=== PATIENT | female | born 2000 | race Caucasian/White ===

== ENCOUNTER 2025-02-23 14:01 | Outpatient (AMB) | payer BC, SELFPAY ==
[2025-02-23 14:16] VITALS: BP 129/79; PULSE 91; RESP 16; TEMP 36.2; O2SAT 99; BMI 34.1
--- NOTE | 2025-02-23 14:16 | OBCLNT_ITS ---
Vital Signs 02/23/25 14:16 Height 1.63 m Height Method Stated Weight 90.265 kg Weight Measurement Method Standing Scale BMI 34.1 BP 129/79 Blood Pressure Source Automatic Cuff Blood Pressure Location Left Upper Arm Position Sitting Respiration 16 Pulse 91 Pulse Source Monitor Temp 97.2 F Temp Source Oral Pulse Oximetry (%) 99 Oxygen Delivery Method Room Air Allergies/Home Meds Allergies & Medications Allergies No Known Allergies Allergy (Verified 02/23/25 14:17) Medication Reconciliation No Known Home Medications 02/23/25 [History Confirmed 02/23/25] Intake Visit Data Collection New Patient or Established: New Patient (never been to [facility]) Reason for Visit:: NEW OB TRANSFER 18 WEEKS Seen by Clinical Staff ONLY (RN/MA): No Leather Skinner Required: No Do You Feel Safe at Home: Yes Authorities Contacted: N/A PCP or OBGYN visit in last 3 months: Yes Hx Now: Yes Are you currently on any form of Control: No Last menstrual period: 09/25/24 Pain Present Currently: Yes Pain Scale Used: Kumar-Huitron/Numerical Pain scale:: 0 Smoking Status Smoking Status: Never smoker Questionnaires Covid-19 Vaccine Questionnaire Has patient been vacinated for Covid-19 Have you been vacinated for Covid-19: Yes PHQ-9 PHQ-2 Over the last 2 weeks, how often have you been bothered by any of the following problems? 1. Little interest or pleasure in doing things: not at all 2. Feeling down, depressed, or hopeless: not at all Total score: 0 PHQ-9 3. Trouble falling or staying asleep, or sleeping too much: Not at all 4. Feeling tired or having little energy: Not at all 5. Poor appetite or overeating: Not at all 6. Feeling bad about yourself - or that you are a failure or have let yourself or your family down: Not at all 7. Trouble concentrating on things, such as reading the newspaper or watching television: Not at all 8. Moving or speaking so slowly that other people could have noticed? - Or the opposite - being so fidgety or restless that you have been moving around a lot more than usual: not at all 9. Thoughts that you would be better off or of hurting yourself in some way: Not at all Total score: 0 If you checked off any problems, how difficult have these problems made it for you to do your work, take care of things at home, or get along with other people?: not difficult at all Source: Developed by Drs. Bebeto Merrill, Penelope Meyer, Harley Santos and colleagues, with an educational alfred from [employer]. 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 Her daughter was 7 months old when she became again.I delivered her for Dr Gomez. She was an IOL for HTN. + Epidural. 39 weeks. Her daughter was 7 lbs and she only pushed once. She had labs ordered from [facility] with Dr Bauer and these are on the chart. She had a normal NIPT 46 XX. 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 She is on Baby ASA due to hx PIH and BMI 34. She is interested in IOL this . OB Initial Visit OB Flowsheet OB Flowsheet Initial Weight: Not Recorded Date -?-?-?-?-?-?-?-?--?-?-?-?- EGA Weight Edema CTX Effacement BP Fundal ht Pres Dilation Effacement Station Visit Note Alb Glu FHR Mov 02/23/25 -?-?-?-?-?-?-?-?-?-?-?-?- 18w 2d 90.265 kg 129/79 20 N IPT 46 XX active Menstrual History Menstrual reliability: definite Flow: normal Menstrual regularity: regular Monthly: Yes Age at menarche: 11 On control pills at conception: No OB History : 1 Para: 1 Hx # Pregnancies: 0 Hx Total # of Abortions (Spontaneous & Elective): 0 # of Living Children: 1 Delivery History 1st : sex: male ([id number]) Delivery type: vaginal History of depression before or after : No Infection History & Risk Evaluation History of STDs: none HIV risk evaluation: low risk Hepatitis B risk evaluation: low risk Patient or partner has history of Genital Herpes: No Varicella/chicken pox status: immunized Genetic Screening & History Genetic Screening/Teratology Counseling - Includes patient, baby's father, or anyone in either family with: 1. Patient's age 35 years or older as of estimated date of delivery: No 2. Thalassemia (Beninese, Eritrean, Mediterranean, or Background); MCV less than 80: No 3. Neural Tube Defect (Meningomyelocele, Spina Bifida, or Anencephaly): No 4. Congenital Heart Defect: No 5. Down Syndrome: No 6. Morro-Sachs (Ashkenazi Scientology, Cajun, Sinhala [place]): No 7. Becky Disease (Ashkenazi Scientology): No 8. Familial Dysautonomia (Ashkenazi Scientology): No 9. Sickle Cell Disease or Trait (): No 10. Hemophilia or other blood disorders: No 11. Muscular Dystrophy: No 12. Cystic Fibrosis: No 13. Lawndale's Chorea: No 14. Mental Retardation/Autism: No 15. Other inherited genetic or chromosomal disorder: No 16. Maternal Metabolic Disorder (EG,TYPE 1 Diabetes, PKU): No 17. Patient or baby's father had a child with defects not listed above: No 18. Recurrent loss or a stillbirth: No 19. Medications (including supplements, vitamins, herbs or otc drugs)/illicit/recreational drugs/alcohol since last menstrual period: No 20. Any other: No Infection History 1. Live with someone with TB or exposed to TB: No 2. Rash or viral illness since last menstrual period: No 3. Hepatitis B,C: No Other (see comments) Source: [employer] Exam Narrative Physical exam: Fundus 20 weeks General General Appearance: alert, in no apparent distress, comfortable, cooperative, healthy appearing and well groomed Neck Neck exam: Present normal inspection, full ROM and trachea midline Chest Chest inspection: Present normal inspection and symmetric chest wall rise Resp Respiratory exam: Present normal lung sounds bilaterally Card Cardiovascular exam: Present regular rate, normal rhythm and normal heart sounds Abdominal Abdominal exam: Present soft and normal bowel sounds Extremities Extremities exam: Present normal inspection and full ROM Psych Psychiatric exam: Present normal affect and normal mood Skin Skin exam: Present warm, dry, intact and normal color Assessment & Plan Diagnosis / Problem List (1) : Status: Acute Qualifiers: Weeks of gestation: 20 weeks Qualified Code(s): Z3A.20 - 20 weeks gestation of Assessment and Plan: Order structural survey (2) History of pre-eclampsia: Status: Acute Assessment and Plan: Monitor BP, continue baby ASA. Consider IOL at 39 weeks. Office Procedures OB Clinic LOC & Office Proc's Nursing/Assessment Patient Status: Initial/New Patient OB Clinic Nursing Assessment: BP Monitoring, Medication Reconciliation, Update PMH in EMR and Vital Signs OB Clinic Coordination of Care: Consent,records obtained, informed consent, Results/Orders obtained and Staff clarify orders Special Needs: Heart tones New Patient Charge New Patient Point Assignment: 1094 New Patient Point Charge: AREA INTELLIGENCE TECHNICIAN Level 3 ([id number])
== END 2025-02-23 15:23 | disposition home or self-care (01) ==
LOC: HODSOBC 14:01
PROVIDERS: Supervising Provider Obstetrics & Gynecology; Visit Provider Obstetrics & Gynecology
DX: O09.292 Supervision of pregnancy with other poor reproductive or obstetric history, second trimester (principal); Z3A.18 18 weeks gestation of pregnancy; Z87.59 Personal history of other complications of pregnancy, childbirth and the puerperium
CPT/HCPCS: 99203; G0463

== ENCOUNTER 2025-03-22 13:58 | Outpatient (AMB) | payer BC, SELFPAY ==
[2025-03-22 14:35] VITALS: BP 123/77; PULSE 101; RESP 18; TEMP 36.2; O2SAT 98; BMI 34.9
--- NOTE | 2025-03-22 14:35 | OBCLNT_ITS ---
Vital Signs 03/22/25 14:35 Height 1.63 m Height Method Stated Weight 92.986 kg Weight Measurement Method Standing Scale BMI 34.9 BP 123/77 Blood Pressure Source Automatic Cuff Blood Pressure Location Left Upper Arm Position Sitting Respiration 18 Pulse 101 H Pulse Source Monitor Temp 97.2 F Temp Source Oral Pulse Oximetry (%) 98 Oxygen Delivery Method Room Air Allergies/Home Meds Allergies & Medications Allergies No Known Allergies Allergy (Verified 03/22/25 14:35) Medication Reconciliation No Known Home Medications 02/23/25 [History Confirmed 03/22/25] Intake Visit Data Collection New Patient or Established: Established Patient (seen at [facility] within 3 years) Reason for Visit:: Return OB visit Do You Feel Safe at Home: Yes Authorities Contacted: N/A PCP or OBGYN visit in last 3 months: Yes Smoking Status Smoking Status: Never smoker Questionnaires PHQ-9 PHQ-2 Over the last 2 weeks, how often have you been bothered by any of the following problems? 1. Little interest or pleasure in doing things: not at all PHQ-9 8. Moving or speaking so slowly that other people could have noticed? - Or the opposite - being so fidgety or restless that you have been moving around a lot more than usual: not at all Source: Developed by Drs. Bebeto Merrill, Penelope Meyer, Harley Santos and colleagues, with an educational alfred from [employer]. 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 Her babies will be 12 to 13 months apart at delivery. Care OB Visit Log OB Flowsheet Initial Weight: Not Recorded Date -?-?-?-?-?-?-?-?-?-?-?-?- EGA Weight BP Alb Glu CTX Pres Fundal ht FHR Mov Dilation Station Effacement Hx Notes Visit Note 02/23/25 -?-?-?-?-?-?-?-?-?-?-?-?- 18w 2d 90.265 kg 129/79 20 active NIPT 46 XX 03/22/25 -?-?-?-?-?-?-?-?-?-?-?-?- 22w 1d 92.986 kg 123/77 23 142 active Good movement. No contractions. No loss of fluid. Had structural survey [place] [facility] 2 weeks ago. I do not have the report yet. Would like to be induced at 39 weeks. Needs glucose challenge test next week. NOA Calculator Estimated Delivery Date Method Current WG Current Estimate 07/25/25 Ultrasound #1 22w 1d Other Estimates 08/04/25 LMP (Uncertain) 20w 5d Expected Delivery Route/Plan 24-year-old -0-0-1. Patient got with a 4-month-old at home. For induction of labor. Coming from [place]. Desires epidural. Specific Issue/Plans BMI 35. Notes Visit Date: 03/22/25 Last Updated by: Germaine Koehler (OB Clinic)MD Patient feels a little anxious. 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 She states some of the patients can be rude. She declines medication. She will look into counseling. She reports left sciatic pain. Stabbing in nature. No contractions bleeding or loss of fluids. She is interested in induction of labor at 39 weeks. She has an 8-month-old at home. Visit Date: 02/23/25 Last Updated by: Germaine Koehler (OB Clinic)MD Transfer of care at 18 weeks [facility]. Hx by Dr. Koehler for Dr. Gomez at [facility] last . All PN labs on chart and reviewed. A+/AB SCREEN-/RI/RPR NR/ HIV-/HEP B -/HEP C-/GC-/CHLAM-/HGB 13.1/ URINE CX -/HGB AIC 5.2/ EARLY GCT 85 Assessment & Plan Diagnosis / Problem List (1) : Status: Acute Qualifiers: Weeks of gestation: 22 weeks Qualified Code(s): Z3A.22 - 22 weeks gestation of (2) History of pre-eclampsia: Status: Acute Assessment and Plan: On baby aspirin 81 mg p.o. daily
== END 2025-03-22 15:04 | disposition home or self-care (01) ==
LOC: HODSOBC 13:58
PROVIDERS: Supervising Provider Obstetrics & Gynecology; Visit Provider Obstetrics & Gynecology
DX: O09.292 Supervision of pregnancy with other poor reproductive or obstetric history, second trimester (principal); Z87.59 Personal history of other complications of pregnancy, childbirth and the puerperium; O09.892 Supervision of other high risk pregnancies, second trimester; O99.352 Diseases of the nervous system complicating pregnancy, second trimester; M54.32 Sciatica, left side; Z3A.22 22 weeks gestation of pregnancy
CPT/HCPCS: 99203; 99213; G0463

== ENCOUNTER 2025-04-22 11:14 | Outpatient (AMB) | payer BC, SELFPAY ==
[2025-04-22 11:35] VITALS: BP 128/78; PULSE 81; RESP 17; TEMP 36.6; O2SAT 97; BMI 35.7
--- NOTE | 2025-04-22 11:35 | OBCLNT_ITS ---
Vital Signs 04/22/25 11:35 Height 1.63 m Height Method Measured Weight 94.517 kg Weight Measurement Method Standing Scale BMI 35.7 BP 128/78 Blood Pressure Source Automatic Cuff Blood Pressure Location Right Upper Arm Position Sitting Respiration 17 Pulse 81 Pulse Source Monitor Temp 97.9 F Temp Source Temporal Artery Scan Pulse Oximetry (%) 97 Oxygen Delivery Method Room Air Allergies/Home Meds Allergies & Medications Allergies No Known Allergies Allergy (Verified 04/22/25 11:35) Medication Reconciliation mv-mn no.97-folic 180 mcg-dha 25 mg-herb no.293 25 mg chewable tablet (Alive Daily Support ) tab PO 04/22/25 [History Confirmed 04/22/25] Intake Visit Data Collection New Patient or Established: Established Patient (seen at [facility] within 3 years) Reason for Visit:: OBC Seen by Clinical Staff ONLY (RN/MA): No Embroidery Assistant Required: No Do You Feel Safe at Home: Yes Authorities Contacted: N/A PCP or OBGYN visit in last 3 months: Yes Date of Last PCP or OBGYN visit: 03/22/25 Hx Now: Yes Are you currently on any form of Control: No Pain Present Currently: No Pain Scale Used: Kumar-Huitron/Numerical Pain scale:: 0 Smoking Status Smoking Status: Never smoker Questionnaires Covid-19 Vaccine Questionnaire Has patient been vacinated for Covid-19 Have you been vacinated for Covid-19: Yes PHQ-9 PHQ-2 Over the last 2 weeks, how often have you been bothered by any of the following problems? 1. Little interest or pleasure in doing things: not at all PHQ-9 3. Trouble falling or staying asleep, or sleeping too much: Not at all 4. Feeling tired or having little energy: Not at all 5. Poor appetite or overeating: Not at all 6. Feeling bad about yourself - or that you are a failure or have let yourself or your family down: Not at all 7. Trouble concentrating on things, such as reading the newspaper or watching television: Not at all 8. Moving or speaking so slowly that other people could have noticed? - Or the opposite - being so fidgety or restless that you have been moving around a lot more than usual: not at all 9. Thoughts that you would be better off or of hurting yourself in some way: Not at all If you checked off any problems, how difficult have these problems made it for you to do your work, take care of things at home, or get along with other people?: not difficult at all Source: Developed by Drs. Bebeto Merrill, Penelope Meyer, Harley Santos and colleagues, with an educational alfred from [employer]. 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 No contractions. No loss of fluid. Had structural survey [place] [facility] 2 weeks ago. I do not have the report yet. Would like to be induced at 39 weeks. Needs glucose challenge test next week. 04/22/25 -?-?-?-?-?-?-?-?-?-?-?-?- 26w 4d 94.517 kg 128/78 27 150 active +FM, no UCs, No VB NOA Calculator Estimated Delivery Date Method Current WG Current Estimate 07/25/25 Ultrasound #1 27w 0d Other Estimates 08/04/25 LMP (Uncertain) 25w 4d Comments: LMP 09/25/24 Expected Delivery Route/Plan 24-year-old -0-0-1. Patient got with a 4-month-old at home. For induction of labor. Coming from [place]. Desires epidural. Specific Issue/Plans BMI 35. On Baby ASA Hx IOL for PIH Normal NIPT 46 XX Notes Visit Date: 04/22/25 Last Updated by: Germaine Koehler (OB Clinic)MD Patient is doing well. Glucose challenge test ordered. Visit Date: 03/22/25 Last Updated by: Germaine Koehler (OB Clinic)MD Patient feels a little anxious. 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 She states some of the patients can be rude. She declines medication. She will look into counseling. She reports left sciatic pain. Stabbing in nature. No contractions bleeding or loss of fluids. She is interested in induction of labor at 39 weeks. She has an 8-month-old at home. Visit Date: 02/23/25 Last Updated by: Germaine Koehler (OB Clinic)MD Transfer of care at 18 weeks [facility]. Hx by Dr. Koehler for Dr. Gomez at [facility] last . All PN labs on chart and reviewed. A+/AB SCREEN-/RI/RPR NR/ HIV-/HEP B -/HEP C-/GC-/CHLAM-/HGB 13.1/ URINE CX -/HGB AIC 5.2/ EARLY GCT 85 Office Procedures OB Clinic LOC & Office Proc's Nursing/Assessment Patient Status: Established Patient OB Clinic Nursing Assessment: Medication Reconciliation, Update PMH in EMR and Vital Signs OB Clinic Coordination of Care: Consent,records obtained, informed consent, 4+ Authorizations needed and Results/Orders obtained Special Needs: Heart tones Established Patient Charge Established Patient Point Assignment: 95 Established Patient Point Charge: EP Level 3 (80-115)
== END 2025-04-22 13:48 | disposition home or self-care (01) ==
LOC: HODSOBC 11:14
PROVIDERS: Supervising Provider Obstetrics & Gynecology; Visit Provider Obstetrics & Gynecology
DX: Z34.82 Encounter for supervision of other normal pregnancy, second trimester (principal); Z3A.26 26 weeks gestation of pregnancy
CPT/HCPCS: 99213; G0463

== ENCOUNTER 2025-05-23 14:25 | Outpatient (AMB) | payer BC, SELFPAY ==
[2025-05-23 14:40] VITALS: BP 119/80; PULSE 87; RESP 17; TEMP 36.9; O2SAT 98; BMI 36.2
--- NOTE | 2025-05-23 14:40 | OBCLNT_ITS ---
Vital Signs 05/23/25 14:40 Height 1.63 m Height Method Stated Weight 96.275 kg Weight Measurement Method Standing Scale BMI 36.2 BP 119/80 Blood Pressure Source Automatic Cuff Blood Pressure Location Right Upper Arm Position Sitting Respiration 17 Pulse 87 Pulse Source Monitor Temp 98.5 F Temp Source Temporal Artery Scan Pulse Oximetry (%) 98 Oxygen Delivery Method Room Air Allergies/Home Meds Allergies & Medications Allergies No Known Allergies Allergy (Verified 05/23/25 14:41) Medication Reconciliation mv-mn no.97-folic 180 mcg-dha 25 mg-herb no.293 25 mg chewable tablet (Alive Daily Support ) tab PO 04/22/25 [History Confirmed 05/23/25] Intake Visit Data Collection New Patient or Established: Established Patient (seen at [facility] within 3 years) Reason for Visit:: OBC 30W Seen by Clinical Staff ONLY (RN/MA): No Solderer Torch Required: No Do You Feel Safe at Home: Yes Authorities Contacted: N/A PCP or OBGYN visit in last 3 months: Yes Date of Last PCP or OBGYN visit: 04/22/25 Hx Now: Yes Are you currently on any form of Control: No Pain Present Currently: No Pain Scale Used: Kumar-Huitron/Numerical Pain scale:: 0 Smoking Status Smoking Status: Never smoker Questionnaires Covid-19 Vaccine Questionnaire Has patient been vacinated for Covid-19 Have you been vacinated for Covid-19: Yes PHQ-9 PHQ-2 Over the last 2 weeks, how often have you been bothered by any of the following problems? 1. Little interest or pleasure in doing things: not at all 2. Feeling down, depressed, or hopeless: not at all Total score: 0 PHQ-9 3. Trouble falling or staying asleep, or sleeping too much: Not at all 4. Feeling tired or having little energy: Not at all 5. Poor appetite or overeating: Not at all 6. Feeling bad about yourself - or that you are a failure or have let yourself or your family down: Not at all 7. Trouble concentrating on things, such as reading the newspaper or watching television: Not at all 8. Moving or speaking so slowly that other people could have noticed? - Or the opposite - being so fidgety or restless that you have been moving around a lot more than usual: not at all 9. Thoughts that you would be better off or of hurting yourself in some way: Not at all Total score: 0 If you checked off any problems, how difficult have these problems made it for you to do your work, take care of things at home, or get along with other people?: not difficult at all Source: Developed by Drs. Bebeto Merrill, Penelope Meyer, Harley Santos and colleagues, with an educational alfred from [employer]. 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 Care OB Visit Log OB Flowsheet Initial Weight: Not Recorded Date -?-?-?-?-?-?-?-?-?-?-?-?- EGA Weight BP Alb Glu CTX Pres Fundal ht FHR Mov Dilation Station Effacement Hx Notes Visit Note 02/23/25 -?-?-?-?-?-?-?-?-?-?-?-?- 18w 2d 90.265 kg 129/79 20 active NIPT 46 XX 03/22/25 -?-?-?-?-?-?-?-?-?-?-?-?- 22w 1d 92.986 kg 123/77 23 142 active Good movement. No contractions. No loss of fluid. Had structural survey [place] [facility] 2 weeks ago. I do not have the report yet. Would like to be induced at 39 weeks. Needs glucose challenge test next week. 04/22/25 -?-?-?-?-?-?-?-?-?-?-?-?- 26w 4d 94.517 kg 128/78 27 150 active +FM, no UCs, No VB 05/23/25 -?-?-?-?-?-?-?-?-?-?-?-?- 31w 0d 96.275 kg 119/80 32 active Good movement no contractions no vaginal bleeding. Patient is hav ing sciatic pain and lower back pain. She is having a very difficult time at work. She is requesting disability at this time. NOA Calculator Estimated Delivery Date Method Current WG Current Estimate 07/25/25 Ultrasound #1 31w 0d Other Estimates 08/04/25 LMP (Uncertain) 29w 4d Expected Delivery Route/Plan 24-year-old -0-0-1. Patient got with a 4-month-old at home. For induction of labor. Coming from [place]. Desires epidural. Specific Issue/Plans BMI 35. On Baby ASA Hx IOL for PIH Normal NIPT 46 XX labs were drawn and [place] at [facility]: A positive/antibody negative rubella immune/RPR nonreactive/HIV negative/hep B negative/hep C negative GC negative Chlamydia negative urine culture negative hemoglobin A1c 5.2/early glucose 85/glucose challenge test at 24 to 28 weeks 107. Notes Visit Date: 05/23/25 Last Updated by: Germaine Koehler (OB Clinic)MD Patient has had 2 ultrasounds at [facility] that are not scanned onto the chart yet. Patient is having back pain and sciatic pain we will take off work at this time. Off work on disability. Note given. Visit Date: 04/22/25 Last Updated by: Germaine Koehler (OB Clinic)MD Patient is doing well. Glucose challenge test ordered. Visit Date: 03/22/25 Last Updated by: Germaine Koehler (OB Clinic)MD Patient feels a little anxious. 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 She states some of the patients can be rude. She declines medication. She will look into counseling. She reports left sciatic pain. Stabbing in nature. No contractions bleeding or loss of fluids. She is interested in induction of labor at 39 weeks. She has an 8-month-old at home. Visit Date: 02/23/25 Last Updated by: Germaine Koehler (OB Clinic)MD Transfer of care at 18 weeks [facility]. Hx by Dr. Koehler for Dr. Gomez at [facility] last . All PN labs on chart and reviewed. A+/AB SCREEN-/RI/RPR NR/ HIV-/HEP B -/HEP C-/GC-/CHLAM-/HGB 13.1/ URINE CX -/HGB AIC 5.2/ EARLY GCT 85 Office Procedures OB Clinic LOC & Office Proc's Nursing/Assessment Patient Status: Established Patient OB Clinic Nursing Assessment: Medication Reconciliation, Update PMH in EMR and Vital Signs OB Clinic Coordination of Care: Complex Care and Chronic Disease 1-5, Consent,records obtained, informed consent, Education Simp Pt/Fam and Staff clarify orders Special Needs: Heart tones Established Patient Charge Established Patient Point Assignment: 115 Established Patient Point Charge: EP Level 3 (80-115)
== END 2025-05-23 15:32 | disposition home or self-care (01) ==
LOC: HODSOBC 14:25
PROVIDERS: PCP Obstetrics & Gynecology; Referring Provider Obstetrics & Gynecology; Supervising Provider Obstetrics & Gynecology; Visit Provider Obstetrics & Gynecology
DX: O09.893 Supervision of other high risk pregnancies, third trimester (principal); O99.353 Diseases of the nervous system complicating pregnancy, third trimester; M54.42 Lumbago with sciatica, left side; Z3A.31 31 weeks gestation of pregnancy
CPT/HCPCS: 99213; G0463

== ENCOUNTER → 2025-06-06 13:30 | Outpatient (AMB) | payer BC, SELFPAY ==
[2025-06-06 13:46] VITALS: BP 130/86; PULSE 82; RESP 16; TEMP 36.8; O2SAT 97; BMI 36.4
--- NOTE | 2025-06-06 13:46 | AMB.OBVISIT ---
Vital Signs 06/06/25 13:46 Height 1.63 m Height Method Stated Weight 96.842 kg Weight Measurement Method Standing Scale BMI 36.4 BP 130/86 H Blood Pressure Source Automatic Cuff Blood Pressure Location Left Upper Arm Position Sitting Respiration 16 Pulse 82 Pulse Source Monitor Temp 98.2 F Temp Source Oral Pulse Oximetry (%) 97 Oxygen Delivery Method Room Air Allergies/Home Meds Allergies & Medications Allergies No Known Allergies Allergy (Verified 06/06/25 13:47) Medication Reconciliation mv-mn no.97-folic 180 mcg-dha 25 mg-herb no.293 25 mg chewable tablet (Alive Daily Support ) tab PO 04/22/25 [History Confirmed 06/06/25] Intake Visit Data Collection New Patient or Established: Established Patient (seen at [facility] within 3 years) Reason for Visit:: CARE Seen by Clinical Staff ONLY (RN/MA): No Superintendent Factory Required: No Do You Feel Safe at Home: Yes Authorities Contacted: N/A PCP or OBGYN visit in last 3 months: Yes Hx Now: Yes Are you currently on any form of Control: No Pain Present Currently: No Pain Scale Used: Kumar-Huitron/Numerical Pain scale:: 0 Smoking Status Smoking Status: Never smoker Questionnaires Covid-19 Vaccine Questionnaire Has patient been vacinated for Covid-19 Have you been vacinated for Covid-19: Yes PHQ-9 PHQ-2 Over the last 2 weeks, how often have you been bothered by any of the following problems? 1. Little interest or pleasure in doing things: not at all 2. Feeling down, depressed, or hopeless: not at all Total score: 0 PHQ-9 3. Trouble falling or staying asleep, or sleeping too much: Not at all 4. Feeling tired or having little energy: Not at all 5. Poor appetite or overeating: Not at all 6. Feeling bad about yourself - or that you are a failure or have let yourself or your family down: Not at all 7. Trouble concentrating on things, such as reading the newspaper or watching television: Not at all 8. Moving or speaking so slowly that other people could have noticed? - Or the opposite - being so fidgety or restless that you have been moving around a lot more than usual: not at all 9. Thoughts that you would be better off or of hurting yourself in some way: Not at all Total score: 0 Source: Developed by Drs. Bebeto Merrill, Penelope Meyer, Harley Santos and colleagues, with an educational alfred from [employer]. 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 No contractions. No loss of fluid. Had structural survey [place] [facility] 2 weeks ago. I do not have the report yet. Would like to be induced at 39 weeks. Needs glucose challenge test next week. 04/22/25 <del>?</del> 26w 4d 94.517 kg 128/78 27 150 active +FM, no UCs, No VB 05/23/25 <del>?</del> 31w 0d 96.275 kg 119/80 32 active Good movement no contractions no vaginal bleeding. Patient is having sciatic pain and lower back pain. She is having a very difficult time at work. She is requesting disability at this time. 06/06/25 <del>?</del> 33w 0d 96.842 kg 130/86 absent 34 134 active No vaginal bleeding no loss of fluids. Good movement Off work on disability. NOA Calculator Estimated Delivery Date Method Current WG Current Estimate 07/25/25 Ultrasound #1 34w 0d Other Estimates 08/04/25 LMP (Uncertain) 32w 4d Expected Delivery Route/Plan 24-year-old -0-0-1. Patient got with a 4-month-old at home. Desires induction of labor. Coming from [place]. Desires epidural. [place]25 [place] [facility] Normal SS. EDC 07/20/25 Specific Issue/Plans BMI 35. On Baby ASA Hx IOL for PIH Normal NIPT 46 XX labs were drawn and [place] at [facility]: A positive/antibody negative rubella immune/RPR nonreactive/HIV negative/hep B negative/hep C negative GC negative Chlamydia negative urine culture negative hemoglobin A1c 5.2/early glucose 85/glucose challenge test at 24 to 28 weeks 107. Notes Visit Date: 05/23/25 Last Updated by: Germaine Koehler (OB Clinic)MD Patient has had 2 ultrasounds at [facility] in [place] that are not scanned onto the chart yet. Patient is having back pain and sciatic pain we will take off work at this time. Off work on disability. Note given. Visit Date: 04/22/25 Last Updated by: Germaine Koehler (OB Clinic)MD Patient is doing well. Glucose challenge test ordered. Visit Date: 03/22/25 Last Updated by: Germaine Koehler (OB Clinic)MD Patient feels a little anxious. 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 She states some of the patients can be rude. She declines medication. She will look into counseling. She reports left sciatic pain. Stabbing in nature. No contractions bleeding or loss of fluids. She is interested in induction of labor at 39 weeks. She has an 8-month-old at home. Visit Date: 02/23/25 Last Updated by: Germaine Koehler (OB Clinic)MD Transfer of care at 18 weeks [facility]. Hx by Dr. Koehler for Dr. Gomez at [facility] last . All PN labs on chart and reviewed. A+/AB SCREEN-/RI/RPR NR/ HIV-/HEP B -/HEP C-/GC-/CHLAM-/HGB 13.1/ URINE CX -/HGB AIC 5.2/ EARLY GCT 85 Office Procedures OB Clinic LOC & Office Proc's Nursing/Assessment Patient Status: Established Patient OB Clinic Nursing Assessment: Medication Reconciliation, Update PMH in EMR and Vital Signs OB Clinic Coordination of Care: Complex Care and Chronic Disease 1-5, Consent,records obtained, informed consent, Education Simp Pt/Fam, 1 Ins Authorization, Lab and Imaging orders, Results/Orders obtained and Staff clarify orders Special Needs: Heart tones Established Patient Charge Established Patient Point Assignment: 150 Established Patient Point Charge: EP Level 4 (120-155) Assessment & Plan Diagnosis / Problem List (1) : Status: Acute Qualifiers: Weeks of gestation: 33 weeks Qualified Code(s): Z3A.33 - 33 weeks gestation of Plan: Follow-up in 2-week (2) History of pre-eclampsia: Status: Acute Plan: Continue baby aspirin
== END ==
LOC: HODSOBC 13:30
PROVIDERS: PCP Obstetrics & Gynecology; Referring Provider Obstetrics & Gynecology; Supervising Provider Obstetrics & Gynecology; Visit Provider Obstetrics & Gynecology
DX: O09.293 Supervision of pregnancy with other poor reproductive or obstetric history, third trimester (principal); Z3A.33 33 weeks gestation of pregnancy; Z87.59 Personal history of other complications of pregnancy, childbirth and the puerperium
CPT/HCPCS: 99214; G0463

== ENCOUNTER 2025-06-17 11:03 | Outpatient (AMB) | payer BC, SELFPAY ==
[2025-06-17 11:15] VITALS: BP 134/84; PULSE 83; RESP 16; TEMP 36.2; O2SAT 97; BMI 36.9
--- NOTE | 2025-06-17 11:15 | OBCLNT_ITS ---
Vital Signs 06/17/25 11:15 Height 1.63 m Height Method Stated Weight 98.203 kg Weight Measurement Method Standing Scale BMI 36.9 BP 134/84 H Blood Pressure Source Automatic Cuff Blood Pressure Location Left Upper Arm Position Sitting Respiration 16 Pulse 83 Pulse Source Monitor Temp 97.1 F Temp Source Oral Pulse Oximetry (%) 97 Oxygen Delivery Method Room Air Allergies/Home Meds Allergies & Medications Allergies No Known Allergies Allergy (Verified 06/17/25 11:16) Medication Reconciliation mv-mn no.97-folic 180 mcg-dha 25 mg-herb no.293 25 mg chewable tablet (Alive Daily Support ) tab PO 04/22/25 [History Confirmed 06/17/25] Intake Visit Data Collection New Patient or Established: Established Patient (seen at [facility] within 3 years) Reason for Visit:: CARE Seen by Clinical Staff ONLY (RN/MA): No Tight Barrel Inspector Required: No Do You Feel Safe at Home: Yes Authorities Contacted: N/A PCP or OBGYN visit in last 3 months: Yes Hx Now: Yes Are you currently on any form of Control: No Pain Present Currently: No Pain Scale Used: Kumar-Huitron/Numerical Pain scale:: 0 Smoking Status Smoking Status: Never smoker Questionnaires Covid-19 Vaccine Questionnaire Has patient been vacinated for Covid-19 Have you been vacinated for Covid-19: Yes PHQ-9 PHQ-2 Over the last 2 weeks, how often have you been bothered by any of the following problems? 1. Little interest or pleasure in doing things: not at all 2. Feeling down, depressed, or hopeless: not at all Total score: 0 PHQ-9 3. Trouble falling or staying asleep, or sleeping too much: Not at all 4. Feeling tired or having little energy: Not at all 5. Poor appetite or overeating: Not at all 6. Feeling bad about yourself - or that you are a failure or have let yourself or your family down: Not at all 7. Trouble concentrating on things, such as reading the newspaper or watching television: Not at all 8. Moving or speaking so slowly that other people could have noticed? - Or the opposite - being so fidgety or restless that you have been moving around a lot more than usual: not at all 9. Thoughts that you would be better off or of hurting yourself in some way: Not at all Total score: 0 Source: Developed by DrsScooby Merrill, Penelope Meyer, Harley Santos and colleagues, with an educational alfred from [employer]. 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 No contractions. No loss of fluid. Had structural survey [place] [facility] 2 weeks ago. I do not have the report yet. Would like to be induced at 39 weeks. Needs glucose challenge test next week. 04/22/25 -?-?-?-?-?-?-?-?-?-?-?-?- 26w 4d 94.517 kg 128/78 27 150 active +FM, no UCs, No VB 05/23/25 -?-?-?-?-?-?-?-?-?-?-?-?- 31w 0d 96.275 kg 119/80 32 active Good movement no contractions no vaginal bleeding. Patient is hav ing sciatic pain and lower back pain. She is having a very difficult time at work. She is requesting disability at this time. 06/06/25 -?-?-?-?-?-?-?-?-?-?-?-?- 33w 0d 96.842 kg 130/86 absent 34 134 ac tive No vaginal bleeding no loss of fluids. Good movement Off work on disability. 06/17/25 -?-?-?-?-?-?-?-?-?-?-?-?- 34w 4d 98.203 kg 134/84 absent 34 145 ac tive Good movement no contractions no loss of fluids U ltrasound for size. NOA Calculator Estimated Delivery Date Method Current WG Current Estimate 07/25/25 Ultrasound #1 34w 4d Other Estimates 08/04/25 LMP (Uncertain) 33w 1d Expected Delivery Route/Plan 24-year-old -0-0-1. Patient got with a 4-month-old at home. Desires induction of labor. Coming from [place]. Desires epidural. [place] [facility] Normal SS. EDC 07/20/25 Specific Issue/Plans BMI 35. On Baby ASA Hx IOL for PIH Normal NIPT 46 XX labs were drawn and [place] at [facility]: A positive/antibody negative rubella immune/RPR nonreactive/HIV negative/hep B negative/hep C negative GC negative Chlamydia negative urine culture negative hemoglobin A1c 5.2/early glucose 85/glucose challenge test at 24 to 28 weeks 107. Notes Visit Date: 06/17/25 Last Updated by: Germaine Koehler (OB Clinic)MD Probable IOL at 39 weeks. History of PIH. Closely spaced . Rapid delivery last . Ultrasound ordered to [facility] for size and dates and weight and position. Visit Date: 05/23/25 Last Updated by: Germaine Koehler (OB Clinic)MD Patient has had [address] [facility] in [place] that are not scanned onto the chart yet. Patient is having back pain and sciatic pain we will take off work at this time. Off work on disability. Note given. Visit Date: 04/22/25 Last Updated by: Germaine Koehler (OB Clinic)MD Patient is doing well. Glucose challenge test ordered. Visit Date: 03/22/25 Last Updated by: Germaine Koehler (OB Clinic)MD Patient feels a little anxious. 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 She states some of the patients can be rude. She declines medication. She will look into counseling. She reports left sciatic pain. Stabbing in nature. No contractions bleeding or loss of fluids. She is interested in induction of labor at 39 weeks. She has an 8-month-old at home. Visit Date: 02/23/25 Last Updated by: Germaine Koehler (OB Clinic)MD Transfer of care at 18 weeks [facility]. Hx by Dr. Koehler for Dr. Gomez at [facility] last . All PN labs on chart and reviewed. A+/AB SCREEN-/RI/RPR NR/ HIV-/HEP B -/HEP C-/GC-/CHLAM-/HGB 13.1/ URINE CX -/HGB AIC 5.2/ EARLY GCT 85 Office Procedures OB Clinic LOC & Office Proc's Nursing/Assessment Patient Status: Established Patient OB Clinic Nursing Assessment: Medication Reconciliation, Update PMH in EMR and Vital Signs OB Clinic Coordination of Care: Complex Care and Chronic Disease 1-5, Consent,records obtained, informed consent, Education Simp Pt/Fam, Lab and Imaging orders, Results/Orders obtained and Staff clarify orders Special Needs: Heart tones Established Patient Charge Established Patient Point Assignment: 135 Established Patient Point Charge: EP Level 4 (120-155) Assessment & Plan Diagnosis / Problem List (1) History of pre-eclampsia: Status: Acute (2) : Status: Acute Qualifiers: Weeks of gestation: 35 weeks Qualified Code(s): Z3A.35 - 35 weeks gestation of
== END 2025-06-17 11:48 | disposition home or self-care (01) ==
LOC: HODSOBC 11:03
PROVIDERS: PCP Obstetrics & Gynecology; Referring Provider Obstetrics & Gynecology; Supervising Provider Obstetrics & Gynecology; Visit Provider Obstetrics & Gynecology
DX: O09.293 Supervision of pregnancy with other poor reproductive or obstetric history, third trimester (principal); Z3A.34 34 weeks gestation of pregnancy; Z87.59 Personal history of other complications of pregnancy, childbirth and the puerperium
CPT/HCPCS: 99214; G0463

== ENCOUNTER → 2025-06-17 | Outpatient (CLI) | payer BC, SELFPAY ==
--- NOTE | 2025-06-17 15:37 | XR_ITS ---
Examination: Complete OB ultrasound greater than 14 weeks Date and time of exam: June 17, 2025 1604 hours INDICATIONS: Diagnosis small for gestational age Findings: Viable intrauterine single fetus with single amniotic sac presentation cephalic Cardiac motion 132 BPM Placenta anterior grade 2. Umbilical cord insertion 3 vessel seen. Amniotic fluid index 13.2 cm Cervix 5.6 cm Ovaries obscured by bowel gas. Composite estimated gestational age based on BPD, head circumference, abdominal circumference, femur length is 35 weeks 0 days Estimated weight 2601 g. Survey of intracranial anatomy, spinal anatomy, abdominal anatomy, four-chamber heart performed with no abnormalities identified. Impression: Viable intrauterine gestation cephalic presentation Estimated gestational age 35 weeks 0 days Estimated weight 2601 g.
== END | disposition home or self-care (01) ==
PROVIDERS: Referring Provider Obstetrics & Gynecology; Visit Provider Obstetrics & Gynecology
DX: O36.5990 Maternal care for other known or suspected poor fetal growth, unspecified trimester, not applicable or unspecified (principal); Z3A.35 35 weeks gestation of pregnancy
CPT/HCPCS: 76805

== ENCOUNTER 2025-06-26 03:59 | Observation (INO) | payer BC, SELFPAY ==
[2025-06-26] VITALS (53 sets, daily range): BP systolic 117–139; BP diastolic 74–88; PULSE 69–103; RESP 16–97; TEMP 36.8–36.9; O2SAT 95–100; BMI 37.0
--- NOTE | 2025-06-26 04:50 | XR_ITS ---
Examination: Complete OB ultrasound greater than 14 weeks Date and time of exam: June 26, 2025, 0602 hrs. Indications: Vaginal bleeding and pelvic contractions beginning 4 hours ago Findings: Viable intrauterine single fetus with single amniotic sac presentation cephalic Cardiac motion 143 BPM Placenta anterior grade 3. Umbilical cord insertion seen. Amniotic fluid index 14.1 cm spine posterior Cervix 3.9 cm Ovaries obscured by the fetus. Composite estimated gestational age based on BPD, head circumference, abdominal circumference, femur length is 35 weeks 1 day Estimated weight 2734 g. Survey of intracranial anatomy, spinal anatomy, abdominal anatomy, four-chamber heart performed with no abnormalities identified. Impression: Viable intrauterine gestation cephalic presentation No placental abruption.
[2025-06-26] MEDS: RINGERS LACTATED 1000 ML 1,000 ML 999 ML IV (05:00)
--- NOTE | 2025-06-26 05:12 | PD.LDHP ---
Documentation for date of: 06/26/25 OB Labor/Induct. HPI History of Present Illness Chief complaint: Vaginal spotting beginning at 02 30 today : 2 Para: 1 Term pregnancies: 1 pregnancies: 0 Living children: 1 History of Abortions: Spontaneous and Elective: 0 History of Vaginal deliveries: 0 History of sections: No History of : No NOA: 07/20/25 Gestational Age (weeks): 36 Gestational Age (days): 4 History of present illness: 24-year-old gravid 2 para 1 with intrauterine at 36 weeks and 4 days has care at [facility] OB clinic came in at 0500 due to vaginal spotting and [place] contractions. She said the spotting started at 230 this morning. She reports normal movement. She denies any leaking. She denies any complications in her care. Her prior vaginal delivery was complicated by preeclampsia Review of Systems Review of Systems Narrative Review of Systems: Denies any chest pain palpitations cough fever shortness of breath or lower extremity pain. She denies any headache change in vision or right upper quadrant pain. Past Medical History Surgical History SURGICAL: Negative Section Meds Home Medications and Allergies Home Medications ?Medication ?Instructions ?Recorded ?Confirmed ?Type mv-mn no.97-folic 180 mcg-dha 25 tab PO 04/22/25 06/17/25 History mg-herb no.293 25 mg chewable tablet (Alive Daily Support ) Allergies Allergy/AdvReac Type Severity Reaction Status Date / Time No Known Allergies Allergy Verified 06/17/25 11:16 OB Exam Physical Exam Vital signs: Temp Pulse Resp BP Pulse Ox 98.5 F 93 16 117/75 99 06/26/25 04:25 06/26/25 04:25 06/26/25 04:25 06/26/25 04:25 06/26/25 05:08 Constitutional Comments: Within normal limits Routine HEENT Exam Comments: Within normal limits Routine Respiratory Exam Comments: Clear to auscultation bilaterally Routine Cardiovascular Exam Comments: Regular rate and rhythm Routine Abdominal Exam Comments: Gravid consistent with 36 weeks gestation, nontender soft Routine Extremities Exam Comments: Nontender Routine Skin Exam Comments: No rashes or lesions Routine Neurological Exam Comments: No deficit OB Results Impressions Impression: Intrauterine at 36 weeks and 4 days Third trimester vaginal bleeding Category 2 tracing Bolus IV fluids Type and cross and hold 2 units of packed red blood cells Continuous monitoring Stat PIH labs Stat OB ultrasound for rule out abruption
[2025-06-26 05:26] LABS: Collection Type, Urine Clean Catch
[2025-06-26 05:37] LABS: Basophils # (Auto) 0.0 Thou/mm3 (0.0-0.2); Basophils % (Auto) 1 % (0-2.5); Eosinophils # (Auto) 0.0 Thou/mm3 (0.0-0.5); Eosinophils % (Auto) 0 % (0-10); Hematocrit 34.5 % (36.0-46.0); Hemoglobin 11.8 g/dL (12.0-16.0); Immature Granulocytes Auto 0.04 Thou/mm3 (0.00-0.00); Lymphocytes # (Auto) 1.4 Thou/mm3 (1.0-4.8); Lymphocytes % (Auto) 21 % (10-50); Mean Corpuscular HGB Conc 34.2 g/dl (31.0-37.0); Mean Corpuscular Hemoglobin 28.0 pg (25.0-35.0); Mean Corpuscular Volume 82 fL (80-100); Monocytes # (Auto) 0.4 Thou/mm3 (0.0-0.8); Monocytes % (Auto) 7 % (0-12); Neutrophils # (Auto) 4.7 Thou/mm3 (1.8-7.7); Neutrophils % (Auto) 71 % (37-80); Nucleated Red Blood Cell # 0.00 Thou/mm3 (0.00-0.00); Nucleated Red Blood Cell % 0 /100 WBC (0); Platelet Count 280 Thou/mm3 (140-440); RDW Standard Deviation 39.1 fL (36.4-46.3); Red Blood Count 4.22 Miln/mm3 (4.00-5.20); White Blood Count 6.6 Thou/mm3 (3.6-11.0)
[2025-06-26 05:42] LABS: Bacteria,Urine 1+; Bilirubin,Urine Negative (Negative); Blood,Urine 3+ (Negative); Clarity,Urine Turbid (Clear/Hazy); Color,Urine Yellow (Lt Yel-Yel); Glucose, Urine Negative (Negative); Ketones,Urine Negative (Negative); Leukocyte Esterase,Urine Positive (Negative); Nitrite,Urine Negative (Negative); PH,Urine 7.0 (5.0-7.0); Protein,Urine Trace (Neg - Trace); RBC,Urine 3 /hpf (0-3); Specific Gravity,Urine 1.022 (1.001-1.035); Squamous Epithelial Cell,Urine 13 /hpf (0-5); Urobilinogen,Urine Negative mg/dL (0.0-1.0); WBC,Urine 17 /hpf (0-5)
[2025-06-26 05:50] LABS: Fibrinogen 440 mg/dL (175-375); INR 0.9 (0.9-1.3); Partial Thromboplastin Time 25.4 Seconds (22.0-36.0); Prothrombin Time 10.1 Seconds (9.0-12.2)
[2025-06-26 05:51] LABS: Alanine Aminotransferase 11 U/L (10-49); Albumin, Serum 3.7 gm/dL (3.5-5.0); Albumin/Globulin Ratio 1.4 (1.2-2.2); Alkaline Phosphatase 128 U/L (46-116); Anion Gap 12 (7-16); BUN/Creatinine Ratio 7 Ratio (12-20); Bilirubin,Total 0.6 mg/dL (0.3-1.2); Blood Urea Nitrogen 5 mg/dL (9-23); Calcium 9.7 mg/dL (8.3-10.6); Calcium (Corrected) 9.9 mg/dL (8.5-10.1); Carbon Dioxide 21.3 mMol/L (20.0-31.0); Chloride 108 mMol/L (98-107); Creatinine (Component) 0.7 mg/dL (0.6-1.3); Estimated Creatinine Clearance 143.3 mL/min (>60); Globulin 2.6 gm/dL (2.3-3.5); Glucose 85 mg/dL (74-106); LDH (Lactate Dehydrogenase) 146 U/L (120-246); Osmolality,Calculated 277 (275-295); Potassium 4.2 mMol/L (3.4-5.1); Sodium 141 mMol/L (136-145); Total Protein 6.3 gm/dL (5.7-8.2); eGFR > 60 See Note
[2025-06-26 06:08] LABS: Aspartate Amino Transferase 18 U/L (0-34)
[2025-06-26 06:18] LABS: Uric Acid 6.4 mg/dL (3.1-7.8)
== END 2025-06-26 08:45 | disposition home or self-care (01) ==
PROVIDERS: Admitting Provider Specialist; Visit Provider Specialist
DX: O46.93 Antepartum hemorrhage, unspecified, third trimester (principal); Z3A.36 36 weeks gestation of pregnancy
CPT/HCPCS: 36415; 59899; 76805; 80053; 81001; 83615; 84550; 85025; 85384; 85610; 85730; 86850; 86900; 86901; 86923; J7120

== ENCOUNTER 2025-06-28 06:10 | Inpatient (IN) | payer BC, SELFPAY ==
[2025-06-28] VITALS (153 sets, daily range): BP systolic 84–152; BP diastolic 48–87; PULSE 69–115; RESP 17–100; TEMP 36.6–36.8; O2SAT 88–100; BMI 37.1
[2025-06-28] MEDS: RINGERS LACTATED 1000 ML 1,000 ML 100 ML IV ×2 (07:34→09:38)
[2025-06-28] MEDS: Ampicillin Inj 2,000 MG in SODIUM CHLORIDE 0.9% (POP) 100 ML 200 MG IV (07:58)
[2025-06-28 08:01] LABS: Basophils # (Auto) 0.0 Thou/mm3 (0.0-0.2); Basophils % (Auto) 0 % (0-2.5); Eosinophils # (Auto) 0.0 Thou/mm3 (0.0-0.5); Eosinophils % (Auto) 0 % (0-10); Hematocrit 36.0 % (36.0-46.0); Hemoglobin 11.9 g/dL (12.0-16.0); Immature Granulocytes Auto 0.04 Thou/mm3 (0.00-0.00); Lymphocytes # (Auto) 1.5 Thou/mm3 (1.0-4.8); Lymphocytes % (Auto) 21 % (10-50); Mean Corpuscular HGB Conc 33.1 g/dl (31.0-37.0); Mean Corpuscular Hemoglobin 27.5 pg (25.0-35.0); Mean Corpuscular Volume 83 fL (80-100); Monocytes # (Auto) 0.5 Thou/mm3 (0.0-0.8); Monocytes % (Auto) 7 % (0-12); Neutrophils # (Auto) 5.2 Thou/mm3 (1.8-7.7); Neutrophils % (Auto) 71 % (37-80); Nucleated Red Blood Cell # 0.00 Thou/mm3 (0.00-0.00); Nucleated Red Blood Cell % 0 /100 WBC (0); Platelet Count 282 Thou/mm3 (140-440); RDW Standard Deviation 39.8 fL (36.4-46.3); Red Blood Count 4.32 Miln/mm3 (4.00-5.20); White Blood Count 7.3 Thou/mm3 (3.6-11.0)
[2025-06-28 08:47] LABS: Syphilis Nonreactive (Nonreactive)
--- NOTE | 2025-06-28 09:49 | PD.LDHP ---
Documentation for date of: 06/28/25 OB Labor/Induct. HPI History of Present Illness Chief complaint: contractions, spotting : 2 Para: 1 Term pregnancies: 1 pregnancies: 0 Living children: 1 History of Abortions: Spontaneous and Elective: 0 History of Vaginal deliveries: 1 History of sections: No History of : No Date of last menstrual period: 09/25/24 NOA: 07/20/25 Gestational Age (weeks): 36 Gestational Age (days): 6 Gestational age based on last menstrual period: 39 History of present illness: Patient presents for regular, painful ctx that begin last night and have become stronger and closer together. Has also had some vaginal spotting. No LOF. Normal movement. No fevers/chills. History of Present Dating criteria: based on 1st trimester US only Adequate Care: Yes Ultrasounds: other (Growth scan 06/26: 2734g = 30%ile) Narrative: : uncomplicated term after IOL for PIH. was 7mo when current was conceived. Short inter- interval BMI 35. Early HgbA1c 5.2. 1hr glucola 107. Hx of PIH, taking ASA 81mg PO QD Labs Maternal Blood Type: A Pos Labs: Positive: Rubella Titre, Negative: RPR, Hepatitis B, HIV, Chlamydia and Gonorrhea and Unknown: Herpes Type 1, Herpes Type 2, Group Beta Strep and Covid-19 Narrative: NIPT: 46 XX Early HgbA1c 5.2 1hr glucola 107 Review of Systems Review of Systems Narrative Review of Systems: Review of Systems Systems Reviewed: All systems reviewed, normal except as documented Constitutional Constitutional: Denies body ache(s), Denies chills, Denies fever(s) and Denies headache(s) ENT Ears, Nose, Mouth, and Throat: Denies headache(s) and Denies vertigo Cardiovascular Cardiovascular: Denies chest pain, Denies palpitations, Denies dyspnea and Denies syncope Respiratory Respiratory: Denies cough, Denies dyspnea Gastrointestinal Gastrointestinal: Denies nausea and Denies vomiting Neurologic Neurologic: Denies convulsions, Denies headache(s), Denies other visual disturbances, Denies syncope and Denies vertigo Past Medical History Family History OTHER FAMILY HX: non-contributory Surgical History SURGICAL: Negative Section Social History SOCIAL: , 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 No ETOH/tobacco/illicit drug use. Past Medical History Comments PMH COMMENT: BMI 35 Hx of PIH Meds Home Medications and Allergies Home Medications ?Medication ?Instructions ?Recorded ?Confirmed ?Type mv-mn no.97-folic 180 mcg-dha 25 1 tab PO QDAY 04/22/25 06/28/25 History mg-herb no.293 25 mg chewable tablet (Alive Daily Support ) aspirin 81 mg tablet,delayed 81 mg PO QDAY 06/26/25 06/28/25 History release (Adult Low Dose Aspirin) Allergies Allergy/AdvReac Type Severity Reaction Status Date / Time No Known Allergies Allergy Verified 06/28/25 06:43 OB Exam Physical Exam Vital signs: Temp Pulse Resp BP Pulse Ox 98.2 F 86 18 132/66 H 100 06/28/25 06:26 06/28/25 09:37 06/28/25 06:26 06/28/25 09:37 06/28/25 09:48 Narrative: General: well developed, well nourished, no acute distress, conversant Cardiac: normal heart rate Lungs: breathing without distress Abdomen: soft, gravid, obese, non-tender, no rebound or guarding Extremities: no pain with palpation of calves Detailed Labor and Delivery Exam Dilation (cm): 5 Effacement (%): 90 Cervix position: mid station: -1 Consistency: soft Presentation: Vertex Membranes: intact Baseline heart rate: 125 monitor accelerations: 15x15 monitor decelerations: None print press operator variability: Moderate (11-25) Contraction frequency (min): q3-4 OB Results Labs 06/28/25 07:14 Labs: Short CBC 06/28/25 Range/Units 07:14 WBC 7.3 (3.6-11.0) Thou/mm3 Hgb 11.9 L (12.0-16.0) g/dL Hct 36.0 (36.0-46.0) % Plt Count 282 (140-440) Thou/mm3 OB Assessment & Plan Assessment and Plan (1) Active labor: Status: Acute Assessment and plan: Anayeli is a 24yo with SIUP at 36&6wk presenting in active pre-term labor. Regular/painful contractions, SCE: /-1, intact. Vitals wnl, benign exam. Reassuring assessment. PMhx/ complicated by: Short inter- interval BMI 35. Early HgbA1c 5.2. 1hr glucola 107. Hx of PIH, taking ASA 81mg PO QD Plan: -Admit to L&D -Establish IV, routine labs -CEFM -Clear liquid diet -Ceramics Teacher/consent re: -GBS status: unknown, Ampicillin per protocol -Anticipate -Counseled patient regarding prematurity and possibility of NICU stay. -Safe to proceed (2) History of pre-eclampsia: Status: Acute (3) Obesity affecting in third trimester: Status: Acute (4) Short interval between pregnancies affecting in third trimester, antepartum: Status: Acute (3) Obesity affecting in third trimester Qualifiers: Obesity type affecting : unspecified obesity Qualified Code(s): O99.213 - Obesity complicating , third trimester
[2025-06-28] MEDS: Ampicillin Inj 1,000 MG in SODIUM CHLORIDE 0.9% (Popper) 50 ML 50 MG IV (11:54)
[2025-06-28] MEDS: OXYTOCIN in NS 20 units 20 UNIT/1,000 ML BAG 125 UNIT IV (16:03)
--- NOTE | 2025-06-28 16:17 | OBDSUM_ITS ---
Data ([facility]) Data Hx Section: No : 2 Term: 1 : 0 Livin Abortions: Spontaneous & Theraputic: 0 Delivery Data ([facility]) Labor Data Initiation of labor: Spontaneous Induction/Augmentation Agent: None ROM date: 06/28/25 ROM time: 15:46 Amniotic membrane rupture type: Artificial Amniotic fluid description: Clear Delivery Data Onset of labor date: 06/28/25 Onset of labor time: 06:30 Complete dilation date: 06/28/25 Complete dilation time: 15:48 delivery date: 06/28/25 delivery time: 15:51 Placenta delivery date: 06/28/25 Placenta delivery time: 15:55 Stage 1 total time: Labor - Stage 1 Duration 9 hours and 18 minutes Delivered by: Dr Sellers Delivery nurse: David Orlando RN [place] nurse: Terrie Lovett RN Leather Worker at delivery: No Support person(s) at delivery: FOB Delivery Method Delivery method: Normal Vaginal Delivery Presentation: Vertex Anesthesia Type Anesthesia Type: Epidural Placenta Placenta delivery description: Spontaneous Cord blood sent to lab: Yes cord blood collection: Cord Blood Type Episiotomy Episiotomy description: None EBL Estimated blood loss (ml): 250 Umbilical Cord cord description: 3 Vessels Additional Procedures Anayeli is a 24yo [id number] s/p uncomplicated at 36&6wk after presenting in active pre-term labor, delivering at 1551 on 06/28/2025. On presentation, SCE was 5cm. She received an epidural. She progressed without pitocin augmentation to C/C/-1 at which AROM was performed, clear. With good maternal pushing efforts, 's head delivered OA and restituted MARTELL. Right anterior shoulder delivered easily followed by posterior shoulder and corpus. 2 large blood clots came out with infant- there had been bloody show prior to delivery, but never concerningly heavy and she had Cat I FHRT. Infant had spontaneous cry and was vigorous. Apgars 9/9. placed on maternal abdomen where nose/mouth were suctioned and dried/stimulated. After approximately 1 minute, cord was clamped x2 and cut by FOB. Cord blood collected for typing. With fundal massage and cord traction, placenta delivered spontaneously and intact with 3 vessel centrally inserted cord. Bimanual massage performed and IV pitocin given per protocol with fundus then firm at u-2cm and hemostasis noted. Placenta inspected- there was adherent clot to a portion of the placental surface, possibly consistent with concealed partial abruption. Inspection of perineum and vagina revealed a superficial fam-urethal (left) erik which was bleeding, so a single figure of 8 was placed using 3-0 vicryl- hemostasis achieved. Fundus remained firm with no bleeding upon fundal massage. All counts correct x2. Mom and were doing well when I left the room. Mildred Sellers MD Complications Complications: none [place] Data ([facility]) Data order: 1 's gender: Female Identification band number: [id number] weight (gms): 2780 g Weight (pounds): 6 lbs and 2.1 ozs 1 minute: 9 5 minutes: 9
[2025-06-28] MEDS: DOCUSATE SOD 100 MG CAPSULE PO (20:14)
[2025-06-29 04:00] VITALS: BP 115/78; RESP 18; TEMP 36.4; O2SAT 98
[2025-06-29 06:13] LABS: Basophils # (Auto) 0.0 Thou/mm3 (0.0-0.2); Basophils % (Auto) 0 % (0-2.5); Eosinophils # (Auto) 0.0 Thou/mm3 (0.0-0.5); Eosinophils % (Auto) 0 % (0-10); Hematocrit 31.8 % (36.0-46.0); Hemoglobin 10.4 g/dL (12.0-16.0); Immature Granulocytes Auto 0.05 Thou/mm3 (0.00-0.00); Lymphocytes # (Auto) 1.8 Thou/mm3 (1.0-4.8); Lymphocytes % (Auto) 18 % (10-50); Mean Corpuscular HGB Conc 32.7 g/dl (31.0-37.0); Mean Corpuscular Hemoglobin 27.4 pg (25.0-35.0); Mean Corpuscular Volume 84 fL (80-100); Monocytes # (Auto) 0.7 Thou/mm3 (0.0-0.8); Monocytes % (Auto) 7 % (0-12); Neutrophils # (Auto) 7.3 Thou/mm3 (1.8-7.7); Neutrophils % (Auto) 74 % (37-80); Nucleated Red Blood Cell # 0.00 Thou/mm3 (0.00-0.00); Nucleated Red Blood Cell % 0 /100 WBC (0); Platelet Count 248 Thou/mm3 (140-440); RDW Standard Deviation 40.9 fL (36.4-46.3); Red Blood Count 3.79 Miln/mm3 (4.00-5.20); White Blood Count 9.8 Thou/mm3 (3.6-11.0)
[2025-06-29 08:25] VITALS: BP 134/79; PULSE 79; RESP 16; TEMP 36.8; O2SAT 98
[2025-06-29] MEDS: DOCUSATE SOD 100 MG CAPSULE PO (08:57)
[2025-06-29] MEDS: PRENATAL VITAMIN/FE FUM/FA TABLET 1 TAB PO (08:57)
--- NOTE | 2025-06-29 10:46 | PD.LDDS ---
DS: Providers Provider Date of admission: 06/28/25 07:03 Primary care physician: Physician No Primary/Family Admitting Provider: Mildred Sellers MD Attending Provider on Admission: Mj Galindo MD Consults: 06/28/25 16:15 Referral Routine Comment: Attending Provider on DC: Mildred Sellers MD Discharging Provider: Mildred Sellers MD DS: Diagnosis Discharge Diagnosis (1) care and examination: Status: Acute (2) Short interval between pregnancies affecting in third trimester, antepartum: Status: Acute (3) Obesity affecting in third trimester: Status: Acute Problem List Completed Was Problem List Reviewed/Reconciled?: Yes Summary/Hosp Course Brief History: Anayeli is a 24yo [id number] s/p uncomplicated at 36&6wk after presenting in active pre-term labor, delivering at 1551 on 06/28/2025. She has had an uncomplicated course, meeting all milestones and feels ready for discharge home. She is ambulating without lightheadedness, tolerating regular diet no n/v, spontaneously voiding without issue. She has no chest pain or shortness of breath. No fevers or chills. Minimal, appropriate discomfort. Vitals normal, benign exam. Hemodynamically stable with no evidence of infection. PP Hgb 10.4. Peripartum Data Delivery Method: Normal Vaginal Delivery Episiotomy Description: None Status at Discharge Functional status at discharge: independent ambulation Overall status at discharge: patient is back to baseline Time Spent with Patient Time attestation: Total time spent providing and/or coordinating discharge services: Exam Vital Signs Temp Pulse Resp BP Pulse Ox O2 Del Method 98.2 F 79 16 134/79 H 98 Room Air 06/29/25 08:25 06/29/25 08:25 06/29/25 08:25 06/29/25 08:25 06/29/25 08:25 06/29/25 08:25 Narrative Exam General: well developed, well nourished, no acute distress, conversant Cardiac: normal heart rate Lungs: breathing without distress Abdomen: soft, post-gravid, non-tender, no rebound or guarding, Fundus firm at u-3cm. Extremities: no pain with palpation of calves, trace edema of BLE Discharge Plan Plan Patient Disposition: HOME (Self Care) Patient condition on transfer: Stable Prescriptions/Referrals Prescriptions/Med Rec: New docusate sodium 100 mg Capsule 100 mg PO BID 10 Days Qty: 20 0RF ibuprofen 800 mg tablet 800 mg PO Q8H PRN (Reason: See Comments) 10 Days Qty: 20 0RF Continued Alive Daily Support 180 mcg-25 mg- 25 mg tablet,chewable 1 tab PO QDAY Discontinued aspirin [Adult Low Dose Aspirin] 81 mg tablet,delayed release (DR/EC) 81 mg PO QDAY Referrals: No Primary/Family,Physician [Primary Care Provider] - Patient/Caregiver Discharge Instructions Discharge Activity: activity as tolerated and other Other Discharge Activity Instructions:: vaginal rest and no heavy lifting more than 10 pounds for 6 weeks Other Discharge Diet Instructions: regular diet Education Materials: After a Vaginal Print Language: Bengali Activity Restrictions/Additional Instructions: Follow up with Dr. Koehler in 2 to 4 weeks for visit, call for appointment Stand Alone Forms: [employer] Award Info., Patient Portal Info Letter Discharge Order Discharge Orders: Discharge (Routine); Ordered 06/29/25 Ordered By: Mildred Sellers Planned Discharge Date 06/29/25 (3) Obesity affecting in third trimester Qualifiers: Obesity type affecting : unspecified obesity Qualified Code(s): O99.213 - Obesity complicating , third trimester
[2025-06-29 11:32] VITALS: BP 127/77; PULSE 65; RESP 17; TEMP 36.6
[2025-06-29 15:19] VITALS: BP 131/77; PULSE 79; RESP 16; TEMP 36.6
== END 2025-06-29 19:20 | disposition home or self-care (01) | DRG 807 ==
LOC: S4SX 16:05 → S4NX 18:11
PROVIDERS: Admitting Provider Obstetrics & Gynecology; Visit Provider Obstetrics & Gynecology
DX: O60.23X0 Term delivery with preterm labor, third trimester, not applicable or unspecified (principal); Z37.0 Single live birth; O99.214 Obesity complicating childbirth; Z3A.36 36 weeks gestation of pregnancy
CPT/HCPCS: 36415; 59025; 85025; 86780; 86850; 86900; 86901; J0290; J2590; J2795; J3010; J7050; J7120; A9270

== ENCOUNTER 2025-07-25 12:59 | Outpatient (AMB) | payer BC, SELFPAY ==
--- NOTE | 2025-07-25 13:05 | AMB.OBPP ---
Vital Signs 07/25/25 13:09 Height 1.63 m Height Method Stated Weight 86.239 kg Weight Measurement Method Standing Scale BMI 32.6 BP 127/80 Blood Pressure Source Automatic Cuff Blood Pressure Location Left Upper Arm Position Sitting Respiration 16 Pulse 73 Pulse Source Monitor Temp 97.3 F Temp Source Oral Pulse Oximetry (%) 98 Oxygen Delivery Method Room Air Allergies/Home Meds Allergies & Medications Allergies No Known Allergies Allergy (Verified 07/25/25 13:10) Medication Reconciliation mv-mn no.97-folic 180 mcg-dha 25 mg-herb no.293 25 mg chewable tablet (Alive Daily Support ) 1 tab PO QDAY 04/22/25 [History Confirmed 07/25/25] norethindrone (contraceptive) 0.35 mg tablet 0.35 mg PO QDAY #84 tabs 07/25/25 [Rx] Intake Visit Data Collection New Patient or Established: Established Patient (seen at [facility] within 3 years) Reason for Visit:: CARE Seen by Clinical Staff ONLY (RN/MA): No Contractor [employer] Required: No Do You Feel Safe at Home: Yes Authorities Contacted: N/A PCP or OBGYN visit in last 3 months: Yes Hx Now: No Are you currently on any form of Control: No Pain Present Currently: No Pain Scale Used: Kumar-Huitron/Numerical Pain scale:: 0 Smoking Status Smoking Status: Never smoker STAGE HAND: Past Medical History Past Medical History: Yes Hx Hypertension (gestational) Additional Operations/Hospitalizations (year & reason): 06/15/2024 without complications Other Relevant History: No significant chronic medical problems such as asthma diabetes or hypertension Patient was induced last for gestational hypertension but this has since resolved. 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 Tobacco History Smoking Status: Never smoker Second Hand Smoke Exposure: No Alcohol History Alcohol Intake: Never Domestic Abuse History Do You Feel Safe at Home: Yes EPDS - PP Depression Screening [place] Pospartum Depression Screen I have been able to laugh and see the funny side of things: (0) As much as I always could I have looked forward with enjoyment to things: (0) As much as I ever did I have blamed myself unnecessarily when things went wrong: (0) No, never I have been anxious or worried for no good reason: (0) No, not at all I have felt scared or panicky for no very good reason: (0) No, not at all Things have been getting on top of me: (0) No, I have been coping as well as ever I have been so unhappy that I have had difficulty sleeping: (0) No, not at all I have felt sad or miserable: (0) No, not at all I have been so unhappy that I have been crying: (0) No, never The thought of harming myself has occurred to me: (0) Never Total Score: EPDS Score: Referral is indicated for score of 9 or more, suicidal, or if provider believes patient is depressed regardless of score.: 0 EPDS completed yes Care OB Visit Log OB Flowsheet Initial Weight: Not Recorded Date <del>?</del> EGA Weight BP Alb Glu CTX Pres Fundal ht FHR Mov Dilation Station Effacement Hx Notes Visit Note 02/23/25 <del>?</del> 18w 2d 90.265 kg 129/79 20 active NIPT 46 XX 03/22/25 <del>?</del> 22w 1d 92.986 kg 123/77 23 142 active Good movement. No contractions. No loss of fluid. Had structural survey [place] [facility] 2 weeks ago. I do not have the report yet. Would like to be induced at 39 weeks. Needs glucose challenge test next week. 04/22/25 <del>?</del> 26w 4d 94.517 kg 128/78 27 150 active +FM, no UCs, No VB 05/23/25 <del>?</del> 31w 0d 96.275 kg 119/80 32 active Good movement no contractions no vaginal bleeding. Patient is having sciatic pain and lower back pain. She is having a very difficult time at work. She is requesting disability at this time. 06/06/25 <del>?</del> 33w 0d 96.842 kg 130/86 absent 34 134 active No vaginal bleeding no loss of fluids. Good movement Off work on disability. 06/17/25 <del>?</del> 34w 4d 98.203 kg 134/84 absent 34 145 active Good movement no contractions no loss of fluids Ultrasound for size. NOA Calculator Estimated Delivery Date Method Current WG Current Estimate 07/25/25 Ultrasound #1 40w 0d Other Estimates 08/04/25 LMP (Uncertain) 38w 4d Expected Delivery Route/Plan 24-year-old -0-0-1. Patient got with a 4-month-old at home. Desires induction of labor. Coming from [place]. Desires epidural. US from 03/02/25 [facility] Normal SS. EDC 07/20/25 Specific Issue/Plans BMI 35. On Baby ASA Hx IOL for PIH Normal NIPT 46 XX labs were drawn and [place] at [facility]: A positive/antibody negative rubella immune/RPR nonreactive/HIV negative/hep B negative/hep C negative GC negative Chlamydia negative urine culture negative hemoglobin A1c 5.2/early glucose 85/glucose challenge test at 24 to 28 weeks 107. Notes Visit Date: 06/17/25 Last Updated by: Germaine Koehler ([facility] Clinic)MD Probable IOL at 39 weeks. History of PIH. Closely spaced . Rapid delivery last . Ultrasound ordered to [facility] for size and dates and weight and position. Visit Date: 05/23/25 Last Updated by: Germaine Koehler ([facility])MD Patient has had 2 ultrasounds at [facility] that are not scanned onto the chart yet. Patient is having back pain and sciatic pain we will take off work at this time. Off work on disability. Note given. Visit Date: 04/22/25 Last Updated by: Germaine Koehler ([facility])MD Patient is doing well. Glucose challenge test ordered. Visit Date: 03/22/25 Last Updated by: Germaine Koehler ([facility])MD Patient feels a little anxious. 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 She states some of the patients can be rude. She declines medication. She will look into counseling. She reports left sciatic pain. Stabbing in nature. No contractions bleeding or loss of fluids. She is interested in induction of labor at 39 weeks. She has an 8-month-old at home. Visit Date: 02/23/25 Last Updated by: Germaine Koehler ([facility])MD Transfer of care at 18 weeks [place]. Hx by Dr. Koehler for Dr. Gomez at [facility] last . All PN labs on chart and reviewed. A+/AB SCREEN-/RI/RPR NR/ HIV-/HEP B -/HEP C-/GC-/CHLAM-/HGB 13.1/ URINE CX -/HGB AIC 5.2/ EARLY GCT 85 HPI Interval History: The patient is a 24-year-old -1-0-2 status post vaginal delivery at 36-6/7 weeks on 06/28/2025. Patient presented to labor and delivery 5 cm dilated and went on to deliver pretty quickly. She was delivered by Dr. Sellers. She stated the baby went to the nursery but did well. Her daughter was born weighing 6 pounds 2 ounces. The patient is pumping her breastmilk. She denies any problems with depression. Her other daughter at home is about a year and a half. The patient is interested in going on the minipill for contraception. She denies fevers, chills ,dysuria, pelvic pain or signs or symptoms of mastitis. Was or delivery considered high risk: No Delivery type: vaginal Was labor induced: no Gestational age at delivery (weeks): 36 Delivery date: 06/28/25 Delivering provider: Dr. Mildred Sellers Delivery complications: No Is patient infant: Yes Is patient sexually active: No Contraception planned: Micronor Review of Systems Review of Systems ROS limited to current STAGE HAND complaints: No Narrative Review of Systems: No fevers or chills. No dysuria. No depression. No erythema of breast. No heavy bleeding. Office Procedures [facility] LOC & Office Proc's Nursing/Assessment Patient Status: Established Patient OB Clinic Nursing Assessment: Medication Reconciliation, Update PMH in EMR and Vital Signs OB Clinic Coordination of Care: Complex Care and Chronic Disease 1-5, Consent,records obtained, informed consent, Education Simp Pt/Fam, Lab and Imaging orders, Results/Orders obtained and Staff clarify orders Established Patient Charge Established Patient Point Assignment: 105 Established Patient Point Charge: EP Level 3 (80-115) Assessment & Plan Diagnosis / Problem List (1) care and examination: Status: Acute Plan: The patient is 4 weeks . She states she had a Pap smear recently. She would like to go on the minipill for now. She will call if she desires any other form of contraception. Different contraceptive options were discussed in detail with the patient including Nexplanon, the Mirena IUD, Depo-Provera ,pills ,the patch or Nuva ring. The patient at this time desires Micronor. She will decide she desires long-term reversible contraception at a later date. The patient told not to have intercourse swim or use the bathtub until the baby is 6 weeks old to prevent possible endometritis. Care Reviewed delivery summary and any complications: Yes Perineal / incision healing noted: Yes Screened for depression: Yes Depression counseling provided: No Discussed family planning & contraception: Yes Contraception planned: Micronor Counseling on safe resumption of sexual activity: Yes Counseling on gradual excercise: Yes Discussed and concerns (describe), provided support: Yes Referred to imcu specialist: No Counseled on good nutrition, hydration, and self care: Yes Reviewed vaccine status: No Chronic & current problems reconciled on problem list: Yes care discussed; questions answered: feeding and sleep Follow up: routine/prn Additional counseling & anticipatory guidance provided: Call if the patient desires a different form of contraception. Is use condoms the first month while on Micronor.
[2025-07-25 13:09] VITALS: BP 127/80; PULSE 73; RESP 16; TEMP 36.3; O2SAT 98; BMI 32.6
== END 2025-07-25 13:55 | disposition home or self-care (01) ==
LOC: HODSOBC 12:59
PROVIDERS: Supervising Provider Obstetrics & Gynecology; Visit Provider Obstetrics & Gynecology
DX: Z39.2 Encounter for routine postpartum follow-up (principal); Z39.1 Encounter for care and examination of lactating mother
CPT/HCPCS: 99213; G0463